=== PATIENT | female | born 1955 | race Hispanic/Latino ===

== ENCOUNTER 2025-02-05 10:17 | Inpatient (IN) | payer MEDICARE ==
[2025-01-31 13:35] LABS: BASOPHILS % 0.2 % (0.0-1.0); EOSINOPHILS % 0.9 % (0.0-6.0); LYMPHOCYTES % 39.2 % (18.0-39.1); MONOCYTES % 6.5 % (4.4-11.3); NEUTROPHILS % 53.2 % (38.7-80.0); RED CELL DISTRIBUTION WIDTH 13.2 % (11.7-14.4)
[2025-01-31 14:08] LABS: EST GLOMERULAR FILTRATION RATE 83.0 ML/MIN (>=60)
[~2025-02-05 10:17] MED LIST: ASPIRIN81 MG PO; CALCIUM PO; PANTOPRAZOLE SO40 MG PO
[2025-02-05] MEDS ORDERED: LIDOCAINE HCL 2% LOCAL INJ 5 ML SDV VIAL INJ ONE (11:25)
[2025-02-05] MEDS ORDERED: DEXAMETHASONE SOD PHOS INJ 4 MG/ML SDV ONE (11:25)
[2025-02-05] MEDS ORDERED: ONDANSETRON HCL INJ 2MG/ML 2ML 2 MG/ML VIAL ONE (11:25)
[2025-02-05] MEDS ORDERED: PROPOFOL IV EMULSION 10 MG/ML 20 ML VIAL ONE ×2 (11:26→14:45)
[2025-02-05] MEDS ORDERED: MIDAZOLAM HCL 2 MG/2 ML VIAL ONE (11:26)
[2025-02-05] MEDS ORDERED: FENTANYL CITRATE/PF 100MCG/2 ML INJ ONE (11:26)
[2025-02-05] MEDS: CLINDAMYCIN 600MG / 50ML 50 ML IV ONE (11:41)
[2025-02-05] MEDS: GENTAMICIN 80MG/NS 100 ML 200 ML IV ONE (11:41)
[2025-02-05] MEDS: SODIUM CHLORIDE 0.9% 1000ML 1,000 ML ONE (11:41)
[2025-02-05] MEDS: PIPERACILLIN/TAZOBACTAM 3.375 GM VIAL ONE (11:42)
[2025-02-05] MEDS ORDERED: EPHEDRINE SULFATE INJ 50 MG/ML VIAL ONE (13:47)
[2025-02-05] MEDS ORDERED: SEVOFLURANE INHAL SOLN 250 ML PEN BTL ONE (13:49)
[2025-02-05] MEDS ORDERED: ACETAMINOPHEN 1000 MG/100 ML 100 ML IV ONE (13:49)
[2025-02-05] MEDS ORDERED: PHENAZOPYRIDINE HCL 100 MG TAB PO PRN (15:15)
[2025-02-05] MEDS ORDERED: DIPHENHYDRAMINE HCL 25 MG CAP PO PRN (15:15)
[2025-02-05] MEDS ORDERED: ACETAMINOPHEN 1000 MG/100 ML IV PRN (15:15)
[2025-02-05] MEDS ORDERED: ACETAMINOPHEN/CODEINE 300MG - 30MG TAB PO PRN (15:15)
[2025-02-05] MEDS ORDERED: ONDANSETRON HCL INJ 2MG/ML 2ML 2 MG/ML VIAL IV PRN (15:15)
[2025-02-05 16:10] LABS: BASOPHILS % 0.3 % (0.0-1.0); EOSINOPHILS % 0.3 % (0.0-6.0); LYMPHOCYTES % 35.3 % (18.0-39.1); MONOCYTES % 3.5 % (4.4-11.3); NEUTROPHILS % 60.4 % (38.7-80.0); RED CELL DISTRIBUTION WIDTH 13.4 % (11.7-14.4)
[2025-02-05 16:34] LABS: EST GLOMERULAR FILTRATION RATE 91.0 ML/MIN (>=60)
[2025-02-05 16:50] VITALS: BP 125/64; PULSE 65; RESP 17; TEMP 97.4; O2SAT 100
[2025-02-05] MEDS: SENNA-S TABLET PO SCH (17:56)
[2025-02-05] MEDS: SODIUM CHLORIDE 0.9% 1000ML 1,000 ML IV SCH (18:04)
[2025-02-05 18:10] VITALS: BP 125/64; PULSE 65; RESP 17; TEMP 97.4; O2SAT 100
[2025-02-05 18:53] LABS: LYMPHOCYTES % (MANUAL) 27 % (19-48); MONOCYTES % (MANUAL) 2 % (3.4-9.0); NEUTROPHILS % (MANUAL) 68 % (40-74); PLATELET ESTIMATE ADEQUATE; PLATELET MORPHOLOGY COMMENT NORMAL; RBC MORPHOLOGY COMMENT NORMAL; REACTIVE LYMPHOCYTES 3
[2025-02-05 20:00] VITALS: BP 110/55; PULSE 73; RESP 18; TEMP 97.6; O2SAT 100
[2025-02-06] VITALS (8 sets, daily range): BP systolic 87–105; BP diastolic 48–57; PULSE 69–76; RESP 16–18; TEMP 97.8–98.5; O2SAT 96–100
[2025-02-06 05:34] LABS: BASOPHILS % 0.1 % (0.0-1.0); EOSINOPHILS % 0.0 % (0.0-6.0); LYMPHOCYTES % 8.9 % (18.0-39.1); MONOCYTES % 5.1 % (4.4-11.3); NEUTROPHILS % 85.5 % (38.7-80.0); RED CELL DISTRIBUTION WIDTH 13.3 % (11.7-14.4)
[2025-02-06 06:19] LABS: EST GLOMERULAR FILTRATION RATE 97.0 ML/MIN (>=60)
[2025-02-07] VITALS (7 sets, daily range): BP systolic 94–108; BP diastolic 50–61; PULSE 64–75; RESP 16–18; TEMP 98–98.6; O2SAT 99–100
[2025-02-07 05:10] LABS: BASOPHILS % 0.3 % (0.0-1.0); EOSINOPHILS % 0.6 % (0.0-6.0); LYMPHOCYTES % 28.8 % (18.0-39.1); MONOCYTES % 7.7 % (4.4-11.3); NEUTROPHILS % 62.5 % (38.7-80.0); RED CELL DISTRIBUTION WIDTH 13.6 % (11.7-14.4)
[2025-02-07 05:34] LABS: EST GLOMERULAR FILTRATION RATE 93.0 ML/MIN (>=60)
== END 2025-02-07 16:48 | disposition home or self-care (01) | DRG 748 ==
LOC: OR 10:17 → PACU V 15:18 → MED/SURG 16:32
PROVIDERS: ADMIT Internal Medicine; ATTEND Internal Medicine
PROC: 0TSD0ZZ Reposition Urethra, Open Approach (ICD-10-PCS; 2025-02-05)
PROC: 0TUD0KZ Supplement Urethra with Nonautologous Tissue Substitute, Open Approach (ICD-10-PCS; 2025-02-05)
PROC: 0TJB8ZZ Inspection of Bladder, Via Natural or Artificial Opening Endoscopic (ICD-10-PCS; 2025-02-05)
PROC: 0T9B70Z Drainage of Bladder with Drainage Device, Via Natural or Artificial Opening (ICD-10-PCS; 2025-02-05)
PROC: BT141ZZ Fluoroscopy of Kidneys, Ureters and Bladder using Low Osmolar Contrast (ICD-10-PCS; 2025-02-05)
PROC: 0JUC0KZ Supplement of Pelvic Region Subcutaneous Tissue and Fascia with Nonautologous Tissue Substitute, Open Approach (ICD-10-PCS; principal; 2025-02-05 13:33)
DX: N81.10 Cystocele, unspecified (principal); I10 Essential (primary) hypertension; K21.9 Gastro-esophageal reflux disease without esophagitis; N39.3 Stress incontinence (female) (male); R31.29 Other microscopic hematuria; Z79.82 Long term (current) use of aspirin; Z87.440 Personal history of urinary (tract) infections
CPT/HCPCS: 36415; 71046; 74420; 80048; 82948; 83735; 85025; 93005; 94799; C1758; C1762; J1100; J1580; J2003; J2250; J2405; J2543; J7030